=== PATIENT | female | born 1935 | race Caucasian/White ===

== ENCOUNTER → 2016-09-06 | Outpatient (CLI) | payer OTHER ==
[~2016-09-06] MED LIST: ASCO100061 PO; ASPI325T45 PO; CALC-5 PO; CHOL100027 PO; GLUC500C4 PO; GRAP100C PO; MAGN311C3 PO; MISCTAB26 PO; MULT-884 PO; NTRC PO; PHYT1CAP PO; VITA400C28 PO; [UNRECOGNIZED DRUG - OTHER] PO; [UNRECOGNIZED DRUG - OTHER] PO
[2016-09-06 11:25] LABS: URINE APPEARANCE CLOUDY (CLEAR); URINE BILIRUBIN NEG (NEG); URINE COLOR YELLOW; URINE EPITHELIAL CELL AUTO >30 /lpf (0-5); URINE NITRITE NEG (NEG); URINE SPECIFIC GRAVITY 1.013 (1.000-1.030); UROBILINOGEN NEG (NEG)
[2016-09-06 11:31] LABS: MANUAL MICROSCOPIC REQUIRED? NO; REVIEW REQ? YES
== END | disposition home or self-care (01) ==
LOC: C.LAB1850 10:30
PROVIDERS: ATTEND Obstetrics & Gynecology
DX: R39.9 Unspecified symptoms and signs involving the genitourinary system (principal)

== ENCOUNTER → 2016-10-28 | Outpatient (CLI) | payer OTHER | END | disposition home or self-care (01) | LOC: C.LABSPEC 10:14 | PROVIDERS: ATTEND Obstetrics & Gynecology | DX: N39.0 Urinary tract infection, site not specified (principal) ==

== ENCOUNTER → 2016-12-12 | Outpatient (CLI) | payer OTHER ==
--- NOTE | 2016-12-13 08:12 | DIAGNOSTIC IMAGING REPORT ---
MRI OF THE LUMBAR SPINE WITHOUT CONTRAST CLINICAL HISTORY: Low back pain with right lumbar radiculopathy. COMPARISON STUDY: CT of the abdomen and pelvis January 12, 2006. TECHNIQUE: Utilizing a 1.5 Laura magnet and dedicated coil, multiplanar, multiecho imaging of the lumbar spine was performed without IV contrast. FINDINGS: For purposes of numbering on this exam, the L5-S1 disc space is assigned to axial image 23 of 25. Alignment of the lumbar spine is anatomic. Vertebral body heights are maintained. Marrow signal heterogeneity is likely within normal limits. There is a Schmorl's node along the inferior endplate of L3. The conus terminates at the mid L1 level. There is no paravertebral abnormality. T2 hyperintense right hepatic lobe and renal lesions likely reflect cysts as these were present on exam of January 12, 2006. Note is made of an 8 mm cyst adjacent to the L4 and L5 spinous processes. L1-2: The central canal and neural foramen are patent L2-3: The central canal and neural foramen are patent. L3-4: There is disc bulge with ligamentous hypertrophy and facet arthrosis. There is mild narrowing of the central canal and lateral recesses. The neural foramen are patent. L4-5: There is minimal disc bulge. There is facet arthrosis with ligamentous hypertrophy. Minimal central canal and lateral recess narrowing is noted. There is a 6 mm T2 hyperintense right foraminal abnormality at this level shown on image 20 of 25. There is also a 6 mm T2 hyperintense abnormality within the right lateral aspect of the canal at the L5 level shown image 21. These could reflect a perineural or synovial cyst. L5-S1: There is disc bulge with a tiny central disc protrusion. There is facet arthrosis. Central canal is patent. There is mild narrowing of both neural foramen. IMPRESSION: 1. Mild multilevel degenerative disc disease and moderate multilevel facet arthrosis. Mild multilevel central canal stenosis. 2. Mild multilevel neural foraminal stenosis. 3. Two 6 mm T2 hyperintense abnormalities at the L4-L5 levels, as described above. These could reflect perineural or synovial cysts. Electronically signed by: Arturo Cai M.D. 12/13/2016 8:11 AM Dictated Date/Time: 12/12/2016 1:03 PM
== END | disposition home or self-care (01) ==
LOC: C.MRIBC 12:02
PROVIDERS: ATTEND Pain Medicine Interventional Pain Medicine
DX: M54.16 Radiculopathy, lumbar region (principal)

== ENCOUNTER → 2017-05-12 | Outpatient (CLI) | payer OTHER ==
[2017-05-12 12:17] LABS: URINE APPEARANCE CLEAR (CLEAR); URINE BILIRUBIN NEG (NEG); URINE COLOR YELLOW; URINE EPITHELIAL CELL AUTO >30 /lpf (0-5); URINE NITRITE NEG (NEG); URINE PH 5.5 (4.5-7.5); URINE SPECIFIC GRAVITY 1.017 (1.000-1.030); UROBILINOGEN NEG (NEG)
[2017-05-12 12:19] LABS: MANUAL MICROSCOPIC REQUIRED? NO; REVIEW REQ? NO
== END | disposition home or self-care (01) ==
LOC: C.LAB1850 10:31
PROVIDERS: ATTEND Obstetrics & Gynecology
DX: R39.9 Unspecified symptoms and signs involving the genitourinary system (principal)

== ENCOUNTER → 2017-07-22 | Outpatient (CLI) | payer OTHER | END | disposition home or self-care (01) | LOC: C.LABSPEC 17:38 | PROVIDERS: ATTEND Obstetrics & Gynecology | DX: R39.9 Unspecified symptoms and signs involving the genitourinary system (principal) ==

== ENCOUNTER 2017-10-16 23:28 | Emergency (ER) | payer OTHER ==
[~2017-10-16] VITALS: Ht 157.5 cm; Wt 64.6 kg
[~2017-10-16 23:28] MED LIST changes: +ASPECOTC PO; -ASPI325T45 PO
[2017-10-16 23:30] VITALS: BP 142/78; PULSE 80; TEMP 36.4; O2SAT 98; Ht 157.5 cm; Wt 64.6 kg
--- NOTE | 2017-10-16 23:53 | EMERGENCY ROOM VISIT NOTE ---
ED Visit Note First contact with patient: 23:35 I saw this patient in conjunction with Shana Brooks PA-C. I agree with her decision making and treatment plan. I examined the patient myself and use the otoscope to examine the right ear. There are no foreign bodies noted within the right ear. I did attempt to remove a small amount of dried wax from the superior aspect of the canal with the speculum. I was unsuccessful. However, this piece of wax is so tiny that I do not think it is affecting her in any way. She was encouraged to use peroxide if necessary to completely clean the ears.
--- NOTE | 2017-10-16 23:55 | EMERGENCY ROOM VISIT NOTE ---
ED Visit Note First contact with patient: 23:35 CHIEF COMPLAINT: Foreign body in the right ear canal HISTORY OF PRESENT ILLNESS: This 82-year-old femur patient presents to the emergency department, ambulatory, complaining of a lost cotton swab in the right ear canal. Just prior to arrival, the patient had gotten out of the shower, and was cleaning the water out of her ears. She states she was using a cotton swab to do this. She at one point pulled the cotton swab out of the right ear, noted the cotton was pulled off of the stick. She believes she is feeling the cotton within the right ear canal. The patient's states he did see the cotton in the ear canal, and was going to attempt to remove it with tweezers, however decided against this. The patient denies any hearing disturbances. She denies any significant pain. She denies any drainage. She is very concerned and anxious regarding the foreign body. She denies any previous history of similar incidents. REVIEW OF SYSTEMS: A 6 system review of systems was performed with positives and pertinent negatives listed in the history of present illness. All other systems were reviewed and are negative. ALLERGIES: Macrobid, penicillin, sulfa, quinolones, beta-lactam antibiotics MEDICATIONS: Aspirin, calcium, vitamin D, glucosamine, multivitamin PMH: "Dry mouth" SOCIAL HISTORY: The patient lives locally with family. She denies drug, alcohol , tobacco use. PHYSICAL EXAM: VITALS: Vitals are noted on the nurse's note and reviewed by myself. Vital signs stable. GENERAL: This is an 82-year-old white female, in no acute distress, nondiaphoretic, well-developed well-nourished. EAR: An otoscope was used to examine the right ear. The TM was not erythematous or bulging. There is no perforation. The ear canal is clear, with only a small amount of dried wax in the superior aspect of the canal. There are very few short cotton fibers attached to the wax, however no cotton swab within the canal. EMERGENCY DEPARTMENT COURSE: The patient was seen and evaluated as above. The patient's attempted to point out the cotton swab to me, and I advised him that this is earwax. He states "that is not earwax, it is the cotton swab" . The patient states "I do not ever have the earwax, as I have dry mouth, so I do not produce earwax". I had Dr. Abdalla evaluate the patient, and she was in agreement with my assessment. Please see her dictation regarding attempts to remove the earwax. The patient was encouraged to use peroxide or Debrox drops as needed for wax softening and removal. I did recommend avoidance of any object such as cotton swabs within the ear canal. Discharge instructions reviewed, the patient was discharged home in good condition. I attest that I have personally reviewed the patient's current medication list. Patient was found to have normal blood pressure on screening and does not require follow-up. Differential diagnosis includes foreign body of the ear canal, TM perforation, cerumen impaction, otitis media, otitis externa, malignancy, and others DIAGNOSIS: Concern for foreign body of the ear canal, no noted foreign body The chart was completed utilizing TDX Speech voice recognition software. Grammatical errors, random word insertions, pronoun errors, and incomplete sentences are an occasional consequence of this system due to software limitations, ambient noise, and hardware issues. Any formal questions or concerns about the content, text, or information contained within the body of this dictation should be directly addressed to the provider for clarification. Problem List Surgical Problems: (1) H/O mastectomy Status: Resolved (2) History of appendectomy Status: Resolved Current/Historical Medications Scheduled Ascorbic Acid (Ascorbic Acid), 1,000 MG PO illness Calcium-Magnesium W/ Vitamin D (Calcium 500), 500-750 MG PO DAILY Cholecalciferol (Vitamin D 1000 Unit), 1,000 INTER.UNIT PO DAILY Glucosamine Sulfate (Glucosamine), Unknown Dose PO DAILY Misc Natural Products (Ginkgo Biloba), 1 TAB PO DAILY Multiple Vitamin (Multi Vitamin Daily), 1 TAB PO DAILY Nutraceuticals (Nutraceuticals), 1 TBS PO DAILY Phytosterol Kfnyba-Xll-Bab (Vayarol), 1 PO DAILY Phytosterol Esters-Fish Oil-Ep (Cardiosterol), 1 CAP PO DAILY Vitamin E (Alph-E), Unknown Dose PO DAILY [estravol], 1-2 CAP PO DAILY Scheduled PRN Aspirin (Aspirin), 650 MG PO for illness Magnesium Hydroxide (Salmon Milk Of Magnesia), 4 TABS PO for illness Miscellaneous Medications Grape Seed (Grape Seed Extract), 1 CAP PO Allergies Coded Allergies: Quinolones (Verified Allergy, Severe, 10/16/17) Penicillins (Verified Allergy, Unknown, 10/16/17) Sulfa Drugs (Verified Allergy, Unknown, 08/11/09) Nitrofurantoin (Unverified Adverse Reaction, Mild, "TERRIBLE PAIN ABD", 06/23) Uncoded Allergies: BETALACTAMASEIN (Allergy, Unknown, LACTAM ANTIBIOTICS, 08/11/09) Vital Signs Date Time Temp Pulse Resp B/P (MAP) Pulse Ox O2 Delivery O2 Flow Rate FiO2 10/16/17 23:30 36.4 80 16 142/78 98 Room Air Departure Information Impression Primary Impression: Concern about ear disease without diagnosis Additional Impression: Cerumen debris on tympanic membrane of right ear Dispostion Home / Self-Care Condition GOOD Referrals No Doctor, Assigned (PCP) Patient Instructions ED Earwax Removal, [facility] Additional Instructions You were seen in the emergency department today for a possible foreign body of the ear canal. As discussed, there was no obvious foreign body noted. There was a few small pieces of cotton which had gotten stuck on some old, hard wax in the ear canal. You may use peroxide [id number] or Debrox drops to help soften the earwax and help with removal. As discussed, this wax does not need to be removed, as it will likely eventually fall out on its own. Follow-up with your PCP for further evaluation or concerns. Return to the emergency department for any worsening symptoms or concerns. Problem Qualifiers
== END 2017-10-16 23:56 | disposition home or self-care (01) ==
LOC: C.EDB 23:29 → C.EDC 23:56
DX: Z71.1 Person with feared health complaint in whom no diagnosis is made (principal); H61.21 Impacted cerumen, right ear; Z88.0 Allergy status to penicillin; Z88.2 Allergy status to sulfonamides; Z88.8 Allergy status to other drugs, medicaments and biological substances; Z79.82 Long term (current) use of aspirin

== ENCOUNTER 2023-07-21 22:31 | Observation (INO) ==
[2023-07-21 23:05] LABS: Basophils # (auto) 0.02 K/uL (0.00-0.20); Basophils % (auto) 0.3 %; Eosinophils # (auto) 0.08 K/uL (0.00-0.50); Eosinophils % (auto) 1.1 %; Hematocrit (blood only) 39.8 % (37.0-47.0); Hemoglobin 14.1 g/dl (12.0-16.0); Immature Granulocytes # (auto) 0.02 K/uL (0.01-0.20); Immature Granulocytes % (auto) 0.3 %; Lymphocytes # (auto) 1.36 K/uL (1.20-3.40); Lymphocytes % (auto) 19.1 %; Mean Corpuscular Hgb Conc 35.4 g/dL (32.0-36.0); Mean Corpuscular Volume 84.7 fL (80.0-100.0); Mean Platelet Volume 9.7 fL (9.4-12.4); Monocytes # (auto) 0.42 K/uL (0.11-0.59); Monocytes % (auto) 5.9 %; Neutrophils # (auto) 5.23 K/uL (1.40-6.50); Neutrophils % (auto) 73.3 %; Platelet Count 210 K/uL (130-400); RDW Coefficient of Variation 12.3 % (11.5-14.5); RDW Standard Deviation 37.9 fL (36.4-46.3); White Blood Count 7.13 K/ul (4.8-10.8)
[2023-07-21 23:16] LABS: Alanine Aminotransferase 15 U/L (7-52); Albumin Globulin Ratio 1.3 (0.9-2); Albumin Level 4.5 gm/dl (3.4-5.0); Alkaline Phosphatase 67 U/L (34-104); Anion Gap 9 (3-11); Aspartate Aminotransferase 22 U/L (13-39); Bilirubin,Total 0.4 mg/dl (0.2-1.0); Blood Urea Nitrogen 21 mg/dl (6-23); Calcium 9.7 mg/dl (8.6-10.3); Carbon Dioxide 22 mmol/L (21-32); Chloride 98 mmol/L (98-107); Est GFR (African American) 89.7 ml/min; Est GFR (Non-African American) 77.4 ml/min; Globulin 3.4 gm/dl (2.5-4.0); Glucose 128 mg/dl (70-99(Fasting)); Potassium 4.1 mmol/L (3.5-5.1); Sodium 129 mmol/L (136-145); Total Protein 7.9 gm/dl (6.0-8.3)
[2023-07-21 23:22] LABS: Troponin I High Sensitivity 10.3 pg/ml (0-14)
[2023-07-21 23:32] LABS: INR 0.9 (0.9-1.1); Partial Thromboplastin Ratio 0.9; Partial Thromboplastin Time 26 Seconds (21-31); Prothrombin Time 10.2 Seconds (9.0-12.0)
[2023-07-22] MEDS ORDERED: KETOROLAC 30 MG/ML VIAL IV ONE (00:24)
[2023-07-22] MEDS ORDERED: OPTIRAY 320 125ml IV ONE (00:57)
[2023-07-22 01:13] LABS: C Reactive Protein < 0.50 mg/dl (0-0.5)
[2023-07-22 01:20] LABS: Troponin I High Sensitivity 11.6 pg/ml (0-14)
[2023-07-22] MEDS ORDERED: SODIUM CHLORIDE 0.9% 1,000 ML IV ONE (01:23)
--- NOTE | 2023-07-22 01:48 | CT Scan Report ---
Exam(s): CTA CHEST IV Amt: 118 cc opti 320 EXAM: CT Angiography Chest With Intravenous Contrast CLINICAL HISTORY: Reason for exam: PE and right chest/ back pain. TECHNIQUE: Axial computed tomographic angiography images of the chest with intravenous contrast. CTDI is 15.95 mGy and DLP is 463.08 mGy-cm. Automated exposure control was utilized for the study. A dose lowering technique was utilized adhering to the principles of ALARA. MIP reconstructed images were created and reviewed. COMPARISON: 02/16/2020. FINDINGS: Pulmonary arteries: See below. Aorta: No acute findings. No thoracic aortic aneurysm. Lungs: Minimal bullous changes involving the right upper lung. Multilevel degenerative disease of the spine. Small partial filling defect within a mid proximal segmental branch of the right anterior middle lobe pulmonary artery consistent with partially occlusive thrombus seen on axial images 124 through 126, series 4. Small partially occlusive thrombus within the mid distal segmental branch of the right upper lobe pulmonary artery, axial image 145 and 146, series 4. Bilateral lower lobe atelectasis with lingular bulla measuring 2.5 cm. Remainder of the lung ramey otherwise clear. No mass. Pleural space: Unremarkable. No pleural effusion or pneumothorax. Heart: Borderline cardiomegaly. The RV/LV ratio is 0.9 with no evidence of right-sided cardiac strain. No significant pericardial effusion. Mediastinum: Mild hiatal hernia. Bones/joints: Diffuse osteopenia with multilevel degenerative disease of the spine. No acute fracture. No dislocation. Soft tissues: Unremarkable. Lymph nodes: Unremarkable. No enlarged lymph nodes. Liver: Multiple low-attenuation structures within the liver, largest seen in the right liver lobe measuring 1.7 x 1.2 cm most compatible with liver cysts. Remainder of the liver unremarkable. IMPRESSION: 1. Small segmental and subsegmental right upper lobe and right middle lobe pulmonary emboli with no evidence of right-sided cardiac strain. 2. Bilateral lower lobe atelectasis, otherwise no acute pulmonary disease. Communications: Call Doctor Other Electronically signed by: Diana Aviles MD 07/22/23 01:46 AM
[2023-07-22 02:41] LABS: Appearance Urine Clear (Clear); Bilirubin Urine Negative (Negative); Blood Urine Negative (Negative); Color Urine Yellow; Glucose Urine UA Negative (Negative); Ketones Urine Negative (Negative); Leukocyte Esterase Urine Negative (Negative); Nitrite Urine Negative (Negative); Protein Urine Negative (Negative); Specific Gravity Urine 1.013 (1.000-1.030); Urobilinogen Urine Negative (Negative); pH Urine 5.5 (4.5-7.5)
[2023-07-22] MEDS ORDERED: Heparin IV Adult Wt-Based Standard *NO* INITIAL Bolus Protocol IV STA (03:50)
[2023-07-22] MEDS ORDERED: HEPARIN SODIUM/DEXTROSE 25,000 UNITS/500 ML BAG IV SCH (04:15)
[2023-07-22] MEDS ORDERED: LIDOCAINE 5% 1 PATCH TD STA (04:44)
[2023-07-22] MEDS ORDERED: LIDOCAINE 5% 1 PATCH TD ONE (04:47)
--- NOTE | 2023-07-22 05:02 | History & Physical Report ---
Date of Service July 22, 2023 Assessment & Plan (1) Pulmonary emboli: Plan: 88yo female presenting with ongoing right shoulder pain. Patient is quite uncomfortable, pain stabbing 10/10 in severity. Found to have small segmental and subsegmental RUL and RML pulmonary emboli as well as bilateral lower lobe atelectasis. Remainder of CT image largely unremarkable. Patient is hemodynamically stable, adequate oxygenation on room air. Patient does have a high risk PESI score (118 points) due to age and history of cancer. Normal shock index. PE most likely provoked in the setting of recent Covid-19 infection. Patient also endorses some decreased mobility lately due to orthopedic discomfort. Of note, patient prefers to take a more holistic and spiritual approach to her health care. She does not take a lot of prescribed or over the counter medications but rather opts for supplements and herbal remedies. She does not spend a lot of time in the healthcare setting and is understandably anxious given her current situation. -Heparin gtt ordered, likely transition to Eliquis later today. Will need to confirm that she is not taking Jennings Wort as this is contraindicated with Eliquis -In accordance with patient's wishes would ideally opt for shortest treatment duration (3 months of anticoagulation for provoked VTE) if possible (2) Right shoulder pain: Plan: Etiology unclear. Patient did have similar presentation of right shoulder pain in 2019 when she was acutely ill with Covid-19. Suspect that her pain is largely due to her recent Covid-19 infection. Pulmonary emboli likely contributing in part as well. As above, patient does not prefer to take pain medications. Her 's daughter reportedly from taking Tylenol so she does not want to take Acetaminophen containing products. She has been using Camphor/Menthol rub at home with minimal relief. -Will trial Lidoderm patches - ordered to be placed in the ER -Could consider Voltaren gel as well -Heat to right shoulder and neck as needed for relief (3) Constipation: Plan: Patient reports ongoing constipation. She takes a stool softener at home -Milk of magnesium as needed Patient's daughter, Alla, updated . Please update her regularly as patient's hospital stay unfolds. History of Present Illness Chief Complaint: right shoulder pain Primary Care Provider: DO Aurora Lopez Fe is an 88yo female with remote history of breast cancer (1990) presenting with right shoulder pain. Patient reports having Covid-19 infection July 07. This is her 4th time with Covid and she frequent has associated pain and weakness. She developed mouth ulcers and pain in her right back and scapula. Her mouth ulcers resolved but the pain in her right shoulder persisted and has been worsening over the last several days. Patient is very uncomfortable. Reports the pain is stabbing in nature and severe. Does not seem to be pleuritic or positional in nature. No chest pain, shortness of breath, nausea, vomiting or diarrhea. She does report poor appetite of late as well as some chronic constipation. No trauma or straining of the right shoulder area. No rash. No pain or swelling of legs No additional complaints at this time. In the ER she is afebrile, hypertensive at 183/113 otherwise HD stable. No respiratory distress. Adequate oxygenation on room air. ER Course: Toradol NSS Heparin gtt - ordered, not yet initiated Allergies Allergy/AdvReac Type Severity Reaction Status Date / Time Quinolones Allergy Severe Unknown Verified 04/09/23 13:48 ciprofloxacin [From Cipro] Allergy Unknown Verified 04/09/23 13:48 clavulanic acid Allergy Unknown Verified 04/09/23 13:48 [From Augmentin] fluconazole [From Diflucan] Allergy Unknown Verified 04/09/23 13:48 Sulfa (Sulfonamide Allergy Unknown Unknown Verified 04/09/23 13:48 Antibiotics) miconazole [From Monistat 7] AdvReac Severe Verified 04/09/23 13:48 nitrofurantoin AdvReac Mild "TERRIBLE Verified 04/09/23 13:48 PAIN ABD" BETALACTAMASEIN Allergy Unknown LACTAM Uncoded 04/09/23 13:48 ANTIBIOTICS Home Medications Medication Instructions Recorded Confirmed Type Left Breast Prosthesis #1 ea 08/22/22 07/22/23 Rx Mastectomy Bra #4 ea 08/22/22 07/22/23 Rx triamcinolone acetonide 0.1 % 1 applic topical TID PRN external 02/03/23 07/22/23 Rx topical ointment irritation #30 grams estradiol 0.01% (0.1 mg/gram) 1 g vaginal .COMPLEX #42.5 grams 03/05/23 07/22/23 Rx vaginal cream nystatin 100,000 unit/gram topical 1 applic topical TID PRN Yeast #30 06/16/23 07/22/23 Rx ointment grams Past Med/Surg History Medical History Breast cancer Encounter for well woman exam with routine gynecological exam Vulvar atrophy Urinary tract infection Urinary symptom or sign Postmenopausal atrophic vaginitis Menopause Breast cancer diagnosed 1990- left mastectomy Surgical History H/O dilation and curettage H/O mastectomy History of appendectomy Family History Father Lung disease Mother Diabetes Denies family history of Ovarian cancer Prostate cancer Myocardial infarction Breast cancer Lung cancer Colorectal cancer Stroke Social History Smoking Status: Never smoker Second Hand Exposure: Yes; Do You Dip or Chew Tobacco: No; Hx Alcohol Use: No Hx Substance Use: No Preferred Language: Lithuanian Communication Ability: Effective Visual Impairment: Partially Limited Hearing Ability: Normal [employer] Area Supervisor Required: No marital status: Current Living Situation: Spouse current occupational status: retired How many Children do You have: 4 Feels Safe at Home: Yes Childhood Exposure to Second-Hand Smoke: No Diet: regular caffeine: No during the past year weight has: remained stable Dental Care, Regularly: Yes Physical Activity Frequency: Does not Exercise Seatbelt Use: always Sunscreen Use: No Assistive Devices: Glasses and Wheelchair Review of Systems Review of Systems: All systems reviewed & are unremarkable except as noted in HPI & below Physical Exam Physical Exam: General: patient uncomfortable in bed, NAD, appears anxious and somewhat frustrated, AA&O x 4 Skin: warm, dry, intact, no rashes or lesions HEENT: NC/AT, PERRL, EOMI, anicteric sclera, conjunctiva without injection, external ear normal to inspection and nontender, nares patent, dry mucus membranes, dentition intact, no oropharyngeal lesions, neck supple, trachea midline, no LAD, no thyromegaly, no JVD Heart: +S1/S2, regular, no m/r/g Lungs: equal air entry bilaterally, no rales/rhonchi/wheezes Abd: +BS, soft, NT/ND, no masses/organomegaly/ascites Ext: warm, 2+ pulses in UE/LE bilaterally, no clubbing/cyanosis or edema Neuro: nonfocal Right shoulder and ribs with no obvious deformity. Diffuse tenderness with palpation of shoulder, ribs, paraspinal musculature. No warmth or tension of musculature appreciated. No rash. No crepitus. Results & Data Results & Data Vital Signs (Past 12 Hours) Vital Signs Temp Pulse Pulse Resp BP BP Pulse Ox 07/22/23 02:56 86 07/22/23 02:03 85 24 183/113 H 97 07/22/23 01:53 79 20 95 07/21/23 23:40 186/99 H 07/21/23 23:01 86 07/21/23 23:00 84 23 94 07/21/23 23:00 163/94 H 07/21/23 22:34 36.8 C 90 18 189/118 H 97 O2 Del Method 07/22/23 02:56 07/22/23 02:03 07/22/23 01:53 Room Air 07/21/23 23:40 07/21/23 23:01 07/21/23 23:00 07/21/23 23:00 07/21/23 22:34 Room Air Laboratory Results Laboratory Results WBC 7.13 K/ul (4.8-10.8) 07/21/23 22:45 RBC 4.70 M/uL (4.20-5.40) 07/21/23 22:45 Hgb 14.1 g/dl (12.0-16.0) 07/21/23 22:45 Hct 39.8 % (37.0-47.0) 07/21/23 22:45 MCV 84.7 fL (80.0-100.0) 07/21/23 22:45 MCH 30.0 pg (25.0-34.0) 07/21/23 22:45 MCHC 35.4 g/dL (32.0-36.0) 07/21/23 22:45 RDW Std Deviation 37.9 fL (36.4-46.3) 07/21/23 22:45 RDW Coeff of Serene 12.3 % (11.5-14.5) 07/21/23 22:45 Plt Count 210 K/uL (130-400) 07/21/23 22:45 MPV 9.7 fL (9.4-12.4) 07/21/23 22:45 Immature Gran % (Auto) 0.3 % 07/21/23 22:45 Neut % (Auto) 73.3 % 07/21/23 22:45 Lymph % (Auto) 19.1 % 07/21/23 22:45 [place] % (Auto) 5.9 % 07/21/23 22:45 Eos % (Auto) 1.1 % 07/21/23 22:45 Baso % (Auto) 0.3 % 07/21/23 22:45 Neut # (Auto) 5.23 K/uL (1.40-6.50) 07/21/23 22:45 Lymph # (Auto) 1.36 K/uL (1.20-3.40) 07/21/23 22:45 [place] # (Auto) 0.42 K/uL (0.11-0.59) 07/21/23 22:45 Eos # (Auto) 0.08 K/uL (0.00-0.50) 07/21/23 22:45 Baso # (Auto) 0.02 K/uL (0.00-0.20) 07/21/23 22:45 Immature Gran # (Auto) 0.02 K/uL (0.01-0.20) 07/21/23 22:45 ESR 28 mm/hr (0-30) 07/22/23 00:46 PT 10.2 Seconds (9.0-12.0) 07/21/23 22:45 INR 0.9 (0.9-1.1) 07/21/23 22:45 APTT 26 Seconds (21-31) 07/21/23 22:45 PTT Ratio 0.9 07/21/23 22:45 Sodium 129 mmol/L (136-145) L 07/21/23 22:45 Potassium 4.1 mmol/L (3.5-5.1) 07/21/23 22:45 Chloride 98 mmol/L (98-107) 07/21/23 22:45 Carbon Dioxide 22 mmol/L (21-32) 07/21/23 22:45 Anion Gap 9 (3-11) 07/21/23 22:45 BUN 21 mg/dl (6-23) 07/21/23 22:45 Creatinine 0.70 mg/dl (0.6-1.2) 07/21/23 22:45 Est Cr Clr Drug Dosing Not Reportable 07/21/23 22:45 Est GFR ( Amer) 89.7 ml/min 07/21/23 22:45 Est GFR (Non-Af Amer) 77.4 ml/min 07/21/23 22:45 BUN/Creatinine Ratio 30.0 (10-20) H 07/21/23 22:45 Glucose 128 mg/dl (70-99(Fasting)) H 07/21/23 22:45 Calcium 9.7 mg/dl (8.6-10.3) 07/21/23 22:45 Total Bilirubin 0.4 mg/dl (0.2-1.0) 07/21/23 22:45 AST 22 U/L (13-39) 07/21/23 22:45 ALT 15 U/L (7-52) 07/21/23 22:45 Alkaline Phosphatase 67 U/L (34-104) 07/21/23 22:45 Troponin I High Sens 11.6 pg/ml (0-14) 07/22/23 00:46 C-Reactive Protein < 0.50 mg/dl (0-0.5) 07/22/23 00:46 Total Protein 7.9 gm/dl (6.0-8.3) 07/21/23 22:45 Albumin 4.5 gm/dl (3.4-5.0) 07/21/23 22:45 Globulin 3.4 gm/dl (2.5-4.0) 07/21/23 22:45 Albumin/Globulin Ratio 1.3 (0.9-2) 07/21/23 22:45 Urine Color Yellow 07/22/23 02:00 Urine Appearance Clear (Clear) 07/22/23 02:00 Urine pH 5.5 (4.5-7.5) 07/22/23 02:00 Ur Specific [place] 1.013 (1.000-1.030) 07/22/23 02:00 Urine Protein Negative (Negative) 07/22/23 02:00 Urine Glucose (UA) Negative (Negative) 07/22/23 02:00 Urine Ketones Negative (Negative) 07/22/23 02:00 Urine Blood Negative (Negative) 07/22/23 02:00 Urine Nitrite Negative (Negative) 07/22/23 02:00 Urine Bilirubin Negative (Negative) 07/22/23 02:00 Urine Urobilinogen Negative (Negative) 07/22/23 02:00 Ur Leukocyte Esterase Negative (Negative) 07/22/23 02:00 Impressions Chest CTA 07/22/23 00:24 CR Exam(s): CTA CHEST IV Amt: 118 cc opti 320 EXAM: CT Angiography Chest With Intravenous Contrast CLINICAL HISTORY: Reason for exam: PE and right chest/ back pain. TECHNIQUE: Axial computed tomographic angiography images of the chest with intravenous contrast. CTDI is 15.95 mGy and DLP is 463.08 mGy-cm. Automated exposure control was utilized for the study. A dose lowering technique was utilized adhering to the principles of ALARA. MIP reconstructed images were created and reviewed. COMPARISON: 02/16/2020. FINDINGS: Pulmonary arteries: See below. Aorta: No acute findings. No thoracic aortic aneurysm. Lungs: Minimal bullous changes involving the right upper lung. Multilevel degenerative disease of the spine. Small partial filling defect within a mid proximal segmental branch of the right anterior middle lobe pulmonary artery consistent with partially occlusive thrombus seen on axial images 124 through 126, series 4. Small partially occlusive thrombus within the mid distal segmental branch of the right upper lobe pulmonary artery, axial image 145 and 146, series 4. Bilateral lower lobe atelectasis with lingular bulla measuring 2.5 cm. Remainder of the lung ramey otherwise clear. No mass. Pleural space: Unremarkable. No pleural effusion or pneumothorax. Heart: Borderline cardiomegaly. The RV/LV ratio is 0.9 with no evidence of right-sided cardiac strain. No significant pericardial effusion. Mediastinum: Mild hiatal hernia. Bones/joints: Diffuse osteopenia with multilevel degenerative disease of the spine. No acute fracture. No dislocation. Soft tissues: Unremarkable. Lymph nodes: Unremarkable. No enlarged lymph nodes. Liver: Multiple low-attenuation structures within the liver, largest seen in the right liver lobe measuring 1.7 x 1.2 cm most compatible with liver cysts. Remainder of the liver unremarkable. IMPRESSION: 1. Small segmental and subsegmental right upper lobe and right middle lobe pulmonary emboli with no evidence of right-sided cardiac strain. 2. Bilateral lower lobe atelectasis, otherwise no acute pulmonary disease. Communications: Call Doctor Other Electronically signed by: Diana Aviles MD 07/22/23 01:46 AM ECG Additional Comments: EKG with SR at 90bpm, 1st degree AV block with WF=084, QRS=82, ZIe=448, no acute ischemic changes PG Care Time/CCT Total # of Minutes Spent Total Time Spent with Patient: Total time spent is greater than 50% in coordination of care (as documented) at patient's floor/unit and/or counseling patient: Coding Level of Care Code 22272 INT INP/OBS CARE 2/55MIN Diagnoses Pulmonary emboli I26.99 Right shoulder pain M25.511 Constipation K59.00
--- NOTE | 2023-07-22 06:57 | XRay Report ---
XR chest 1V portable CLINICAL HISTORY: Chest pain, nonspecific TECHNIQUE: Single frontal radiograph of the chest was obtained. Comparison: Comparison is made to chest radiograph 02/08/2020 FINDINGS: No lines and tubes are seen. The cardiomediastinal silhouette is normal. Faint airspace opacity in th e right lower lung. No evidence of pleural effusion or pneumothorax. IMPRESSION: Faint airspace opacity in the right lower lung likely represent atelectasis with or without superimpo sed aspiration/pneumonia. ACT 112: Negative or not required by law. Electronically signed by: Tomy Savage M.D. 07/22/2023 6:55 AM
--- NOTE | 2023-07-22 06:58 | Emergency Department Note ---
Impression & Plan Pulmonary emboli, Acute right-sided back pain Admit to the [facility] ED Provider Note NAME: JEFF CRONIN AGE: 88 SEX: Female INFORMANT: Patient ED PROVIDER(S): Natasha Abdalla DO CHIEF COMPLAINT: Right shoulder pain, chest pain, back pain PLAN: Disposition: Admit to the [facility] MEDICAL DECISION MAKING: This is an 88-year-old female patient who presents to the emergency department with excruciating right mid back pain, right arm pain and right-sided chest pain that has worsened over the past 3 weeks. The patient describes having COVID around 07 July which seems to have started to exacerbate her symptoms. Laboratory studies revealed no leukocytosis or anemia. She had normal coagulation studies. Patient did have moderate hyponatremia with a sodium of 129 and normal renal function. She was bolused with IV normal saline solution she had a normal glucose. Patient did have an opacity in the right lower lung on chest x-ray. She had normal-appearing shoulder on x-ray. She went for CTA of the chest to rule out PE. This did show multiple emboli in the right lung. Patient was hemodynamically stable with normal blood pressure and no evidence of hypoxia. Patient was offered multiple different additional IV analgesia but refused out of fear of side effects from the medications. However given the patient's age, need for additional work up and she was having such significant discomfort in her right shoulder, right back and right breast, I felt the patient should be admitted for IV anticoagulation and transition to oral anticoagulation. She was started on IV heparin drip after a lengthy discussion with the patient, the patient's and the patient's daughter. I discussed the case with the [facility] and they will evaluate the patient for further inpatient care. Care/management discussed with: The patient's daughter, patient's , the client account manager, the radiologist, and the [facility] Triage Nursing notes: Reviewed and agree with them. 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 There is no ST segment elevation or signs of ischemia Cardiac Monitoring: Normal sinus rhythm at 84 Imaging studies: Portable chest x-ray: Opacity at the right lung base as per my independent interpretation Right shoulder x-ray: No obvious abnormality as per my independent interpretation CT scan of the chest: As per stat rad HPI: 88 year old Female arrives for evaluation of right-sided back pain, right arm pain and right-sided chest pain/breast pain. According to the patient and her , she has been having right-sided chest pain for the past 3 to 4 weeks and then developed COVID. Since that time she has had increasing right shoulder pain, right arm pain and right-sided back pain. She also noticed some ulcerations in her mouth. PAST MEDICAL HISTORY: See Below, PAST SURGICAL HISTORY: See Below, SOCIAL HISTORY: Patient lives with her , she does not smoke HOME MEDICATIONS: None ALLERGIES: Please see long list VITALS: See Below PHYSICAL EXAMINATION: HEENT: Head - normocephalic and atraumatic. Pupils are equal, round, and reactive to light. Extraocular eye muscles are intact, and sclera are anicteric. Nose - moist nasal mucosa without discharge. Mouth - moist buccal mucosa. Oropharynx is nonerythematous and there is no tonsillar exudate or edema noted. Neck: Supple; no JVD or cervical lymphadenopathy Chest: Patient had pain to palpation to the right breast tissue and right chest wall Heart: Regular rate and rhythm. There is a normal S1 and S2 with no murmurs, clicks, or gallops appreciated. Lungs: Clear to auscultation bilaterally with no wheezes, rales, or rhonchi. Abdomen: Soft, completely nontender, nondistended, with good bowel sounds. There are no palpable pulsatile masses or hepatosplenomegaly. There is no guarding, rigidity, or rebound noted. Extremities: No evidence of cyanosis, clubbing, or edema. There are easily palpable peripheral pulses. There are no skin lesions noted to the right arm but the patient did have significant pain to palpation even to light touch to the right upper arm Skin: warm and dry with good turgor and no rashes. Back: There were no skin lesions noted to the right side of her upper back. However, she had exquisite tenderness with even light palpation in that area. Emergency department treatment: traffic monitor specialist, IV Toradol, IV heparin Emergency department course: The patient was evaluated in room A-4. A complete history and physical was performed. An order was placed for continuous cardiac monitoring. The patient was in a normal sinus rhythm at a rate of 84 patient was given a dose of IV Toradol. Patient was bolused with IV normal saline solution. Patient had a chest x-ray of the chest and right shoulder. She went for CTA of the chest to rule out PE as well as other pathology. Reviewed the results of the laboratory says as well as a CT scan. I was asked by the patient to discuss the case with her daughter. Patient will be started on an IV heparin drip. Discussed the case with the [facility] Hospitalist and she will be evaluated for further inpatient care. Past Med/Surg History Medical History Breast cancer Encounter for well woman exam with routine gynecological exam Vulvar atrophy Urinary tract infection Urinary symptom or sign Postmenopausal atrophic vaginitis Menopause Breast cancer diagnosed 1990- left mastectomy Surgical History H/O dilation and curettage H/O mastectomy History of appendectomy Family History Father Lung disease Mother Diabetes Denies family history of Ovarian cancer Prostate cancer Myocardial infarction Breast cancer Lung cancer Colorectal cancer Stroke Social History Smoking Status: Never smoker Second Hand Exposure: Yes; Do You Dip or Chew Tobacco: No; Hx Alcohol Use: No Hx Substance Use: No Preferred Language: Belgian Communication Ability: Effective Visual Impairment: Partially Limited Hearing Ability: Normal Bus Analyst Required: No Beliefs That Will Affect Care: None marital status: Current Living Situation: Spouse current occupational status: retired How many Children do You have: 4 Feels Safe at Home: Yes Childhood Exposure to Second-Hand Smoke: No Diet: regular caffeine: No during the past year weight has: remained stable Dental Care, Regularly: Yes Physical Activity Frequency: Does not Exercise Seatbelt Use: always Sunscreen Use: No Assistive Devices: Wheelchair Allergies Allergies Allergy/AdvReac Type Severity Reaction Status Date / Time Quinolones Allergy Severe Unknown Verified 04/09/23 13:48 ciprofloxacin [From Cipro] Allergy Unknown Verified 04/09/23 13:48 clavulanic acid Allergy Unknown Verified 04/09/23 13:48 [From Augmentin] fluconazole [From Diflucan] Allergy Unknown Verified 04/09/23 13:48 Sulfa (Sulfonamide Allergy Unknown Unknown Verified 04/09/23 13:48 Antibiotics) miconazole [From Monistat 7] AdvReac Severe Verified 04/09/23 13:48 nitrofurantoin AdvReac Mild "TERRIBLE Verified 04/09/23 13:48 PAIN ABD" BETALACTAMASEIN Allergy Unknown LACTAM Uncoded 04/09/23 13:48 ANTIBIOTICS Home Meds Previous Rx's Medication Instructions Recorded Left Breast Prosthesis #1 ea 08/22/22 Mastectomy Bra #4 ea 08/22/22 triamcinolone acetonide 0.1 % 1 applic topical TID PRN external 02/03/23 topical ointment irritation #30 grams estradiol 0.01% (0.1 mg/gram) 1 g vaginal .COMPLEX #42.5 grams 03/05/23 vaginal cream nystatin 100,000 unit/gram topical 1 applic topical TID PRN Yeast #30 06/16/23 ointment grams apixaban 5 mg tablet (Eliquis) 10 mg (2 x 5 mg) PO BID #74 tabs 07/22/23 ibuprofen 200 mg tablet 600 mg (3 x 200 mg) PO Q6H PRN 07/22/23 pain #20 tabs Results & Data (ED) Vital Signs Vital Signs - 24 hr 07/21/23 22:34 07/21/23 23:00 07/21/23 23:00 Temperature 36.8 C Temperature Source Temporal Artery Scan Pulse Rate 90 84 Pulse Rate [Apical] Pulse Rate from SpO2 Sensor 84 Pulse Rhythm Regular Pulse Rhythm [Apical] Pulse Strength Normal Pulse Strength [Apical] Respiratory Rate 18 23 Respiratory Effort / Characteristics Non-Labored Spontaneous Respiratory Depth Normal Respiratory Pattern Regular Blood Pressure 189/118 H 163/94 H Blood Pressure [Left Arm] Blood Pressure Mean 141 127 Blood Pressure Mean [Left Arm] Blood Pressure Position Sitting Blood Pressure Position [Left Arm] Pulse Oximetry 97 94 Oxygen Delivery Method Room Air Sepsis Recent Fever Within 48 Hours No Sepsis New/Unexplained Change in Mental Status N/A Sepsis Action Taken by Nursing No Action Required 07/21/23 23:01 07/21/23 23:40 07/22/23 01:53 Temperature Temperature Source Pulse Rate 86 Pulse Rate [Apical] 79 Pulse Rate from SpO2 Sensor Pulse Rhythm Pulse Rhythm [Apical] Regular Pulse Strength Pulse Strength [Apical] Normal Respiratory Rate 20 Respiratory Effort / Characteristics Non-Labored Respiratory Depth Normal Respiratory Pattern Regular Blood Pressure Blood Pressure [Left Arm] 186/99 H Blood Pressure Mean Blood Pressure Mean [Left Arm] 128 Blood Pressure Position Blood Pressure Position [Left Arm] Sitting Pulse Oximetry 95 Oxygen Delivery Method Room Air Sepsis Recent Fever Within 48 Hours Sepsis New/Unexplained Change in Mental Status Sepsis Action Taken by Nursing 07/22/23 02:03 07/22/23 02:05 07/22/23 02:05 Temperature Temperature Source Pulse Rate 85 86 Pulse Rate [Apical] Pulse Rate from SpO2 Sensor Pulse Rhythm Pulse Rhythm [Apical] Pulse Strength Pulse Strength [Apical] Respiratory Rate 24 20 Respiratory Effort / Characteristics Respiratory Depth Respiratory Pattern Blood Pressure 183/113 H 183/113 H Blood Pressure [Left Arm] Blood Pressure Mean 136 150 Blood Pressure Mean [Left Arm] Blood Pressure Position Blood Pressure Position [Left Arm] Pulse Oximetry 97 Oxygen Delivery Method Sepsis Recent Fever Within 48 Hours Sepsis New/Unexplained Change in Mental Status Sepsis Action Taken by Nursing 07/22/23 02:56 07/22/23 03:00 07/22/23 03:00 Temperature Temperature Source Pulse Rate 86 89 Pulse Rate [Apical] Pulse Rate from SpO2 Sensor 90 Pulse Rhythm Pulse Rhythm [Apical] Pulse Strength Pulse Strength [Apical] Respiratory Rate 23 Respiratory Effort / Characteristics Respiratory Depth Respiratory Pattern Blood Pressure 205/108 H Blood Pressure [Left Arm] Blood Pressure Mean 156 Blood Pressure Mean [Left Arm] Blood Pressure Position Blood Pressure Position [Left Arm] Pulse Oximetry 94 Oxygen Delivery Method Sepsis Recent Fever Within 48 Hours Sepsis New/Unexplained Change in Mental Status Sepsis Action Taken by Nursing 07/22/23 03:49 07/22/23 03:49 07/22/23 04:00 Temperature Temperature Source Pulse Rate 84 84 Pulse Rate [Apical] Pulse Rate from SpO2 Sensor 87 Pulse Rhythm Pulse Rhythm [Apical] Pulse Strength Pulse Strength [Apical] Respiratory Rate 22 18 Respiratory Effort / Characteristics Respiratory Depth Respiratory Pattern Blood Pressure 211/110 H Blood Pressure [Left Arm] Blood Pressure Mean 122 Blood Pressure Mean [Left Arm] Blood Pressure Position Blood Pressure Position [Left Arm] Pulse Oximetry 94 Oxygen Delivery Method Sepsis Recent Fever Within 48 Hours Sepsis New/Unexplained Change in Mental Status Sepsis Action Taken by Nursing 07/22/23 04:00 Temperature Temperature Source Pulse Rate Pulse Rate [Apical] Pulse Rate from SpO2 Sensor Pulse Rhythm Pulse Rhythm [Apical] Pulse Strength Pulse Strength [Apical] Respiratory Rate Respiratory Effort / Characteristics Respiratory Depth Respiratory Pattern Blood Pressure 168/120 H Blood Pressure [Left Arm] Blood Pressure Mean 135 Blood Pressure Mean [Left Arm] Blood Pressure Position Blood Pressure Position [Left Arm] Pulse Oximetry Oxygen Delivery Method Sepsis Recent Fever Within 48 Hours Sepsis New/Unexplained Change in Mental Status Sepsis Action Taken by Nursing Laboratory Data 07/21/23 22:45 07/21/23 22:45 Lab Results 07/21/23 07/22/23 07/22/23 Range/Units 22:45 00:46 02:00 WBC 7.13 (4.8-10.8) K/ul RBC 4.70 (4.20-5.40) M/uL Hgb 14.1 (12.0-16.0) g/dl Hct 39.8 (37.0-47.0) % MCV 84.7 (80.0-100.0) fL MCH 30.0 (25.0-34.0) pg MCHC 35.4 (32.0-36.0) g/dL RDW Std Deviation 37.9 (36.4-46.3) fL RDW Coeff of [place] 12.3 (11.5-14.5) % Plt Count 210 (130-400) K/uL MPV 9.7 (9.4-12.4) fL Immature Gran % (Auto) 0.3 % Neut % (Auto) 73.3 % Lymph % (Auto) 19.1 % Sunflower % (Auto) 5.9 % Eos % (Auto) 1.1 % Baso % (Auto) 0.3 % Neut # (Auto) 5.23 (1.40-6.50) K/uL Lymph # (Auto) 1.36 (1.20-3.40) K/uL Sunflower # (Auto) 0.42 (0.11-0.59) K/uL Eos # (Auto) 0.08 (0.00-0.50) K/uL Baso # (Auto) 0.02 (0.00-0.20) K/uL Immature Gran # (Auto) 0.02 (0.01-0.20) K/uL ESR 28 (0-30) mm/hr PT 10.2 (9.0-12.0) Seconds INR 0.9 (0.9-1.1) APTT 26 (21-31) Seconds PTT Ratio 0.9 Sodium 129 L (136-145) mmol/L Potassium 4.1 (3.5-5.1) mmol/L Chloride 98 (98-107) mmol/L Carbon Dioxide 22 (21-32) mmol/L Anion Gap 9 (3-11) BUN 21 (6-23) mg/dl Creatinine 0.70 (0.6-1.2) mg/dl Est Cr Clr Drug Dosing Not Reportable Est GFR ( Amer) 89.7 ml/min Est GFR (Non-Af Amer) 77.4 ml/min BUN/Creatinine Ratio 30.0 H (10-20) Glucose 128 H (70-99(Fasting)) mg/dl Calcium 9.7 (8.6-10.3) mg/dl Total Bilirubin 0.4 (0.2-1.0) mg/dl AST 22 (13-39) U/L ALT 15 (7-52) U/L Alkaline Phosphatase 67 (34-104) U/L Troponin I High Sens 10.3 11.6 (0-14) pg/ml C-Reactive Protein < 0.50 (0-0.5) mg/dl Total Protein 7.9 (6.0-8.3) gm/dl Albumin 4.5 (3.4-5.0) gm/dl Globulin 3.4 (2.5-4.0) gm/dl Albumin/Globulin Ratio 1.3 (0.9-2) Urine Color Yellow Urine Appearance Clear (Clear) Urine pH 5.5 (4.5-7.5) Ur Specific [place] 1.013 (1.000-1.030) Urine Protein Negative (Negative) Urine Glucose (UA) Negative (Negative) Urine Ketones Negative (Negative) Urine Blood Negative (Negative) Urine Nitrite Negative (Negative) Urine Bilirubin Negative (Negative) Urine Urobilinogen Negative (Negative) Ur Leukocyte Esterase Negative (Negative) Administered Medications Discontinued Medications Apixaban (Apixaban 5 Mg Tablet) 10 mg PO BID JACY Stop: 07/29/23 09:01 Last Admin: 07/22/23 16:59 Dose: 10 mg Documented By: VERA Heparin Sodium/Dextrose (Heparin Iv Adult Wt-Based Standard *No* Initial Bolus Protocol) 1 each IV ONE STA; Protocol Stop: 07/22/23 03:51 Last Admin: 07/22/23 05:26 Dose: Not Given Documented By: SAUL Sodium Chloride (Nss) 1,000 mls @ 999 mls/hr IV .Q1H1M ONE Stop: 07/22/23 02:23 Last Infusion: 07/22/23 02:38 Dose: Infused Documented By: Admin: 07/22/23 01:34 Dose: 999 mls/hr Documented By: SAUL Heparin Sodium/Dextrose (Heparin Sodium/Dextrose) 25,000 units in 500 mls @ 20 mls/hr IV .Q24H JACY; Protocol Stop: 07/22/23 17:00 Last Titration: 07/22/23 17:00 Dose: Infused Documented By: VERA Co-signed By: KENNY Titration: 07/22/23 14:00 Dose: 1,000 units/hr, 20 mls/hr Documented By: VERA Co-signed By: YAMILKA Titration: 07/22/23 12:55 Dose: 0 units/hr, 0 mls/hr Documented By: VERA Co-signed By: LAMINE Titration: 07/22/23 10:42 Dose: 1,100 units/hr, 22 mls/hr Documented By: VERA Co-signed By: LAMINE Admin: 07/22/23 05:25 Dose: 1,100 units/hr, 22 mls/hr Documented By: SAUL Co-signed By: DOROTHY Ioversol (Optiray 320 125ml) 118 ml IV ONCE ONE Stop: 07/22/23 00:58 Last Admin: 07/22/23 00:58 Dose: 118 ml Documented By: CAREN Ketorolac Tromethamine (Ketorolac 30 Mg/Ml Vial) 30 mg IV NOW ONE Stop: 07/22/23 00:25 Last Admin: 07/22/23 00:47 Dose: 30 mg Documented By: GABINO Ketorolac Tromethamine (Ketorolac Tromethamine 15 Mg/Ml Vial) 15 mg IV Q6H PRN PRN Reason: Pain Last Admin: 07/22/23 17:05 Dose: 15 mg Documented By: Admin: 07/22/23 09:51 Dose: 15 mg Documented By: BRENNAN Lidocaine (Lidocaine 5% 1 Patch) 1 patch TD NOW STA Stop: 07/22/23 04:45 Last Admin: 07/22/23 05:25 Dose: 1 patch Documented By: SAUL Lidocaine (Lidocaine 5% 1 Patch) Confirm Administered Dose 1 patch TD .STK-MED ONE Stop: 07/22/23 04:48 Last Admin: 07/22/23 05:24 Dose: Not Given Documented By: SAUL Lidocaine (Lidocaine 5% 1 Patch) 1 patch TD QAM [facility] Stop: 08/21/23 08:59 Last Admin: 07/22/23 10:05 Dose: Not Given Documented By: BRENNAN Miscellaneous (Remove Lidoderm Patch) 1 each N/A TODAY@1700 ONE Stop: 07/22/23 17:01 Last Admin: 07/22/23 17:01 Dose: 1 each Documented By: [facility] Imaging Data Radiologist's Impression: Chest CTA 07/22/23 00:24 CR Exam(s): CTA CHEST IV Amt: 118 cc opti 320 EXAM: CT Angiography Chest With Intravenous Contrast CLINICAL HISTORY: Reason for exam: PE and right chest/ back pain. TECHNIQUE: Axial computed tomographic angiography images of the chest with intravenous contrast. CTDI is 15.95 mGy and DLP is 463.08 mGy-cm. Automated exposure control was utilized for the study. A dose lowering technique was utilized adhering to the principles of ALARA. MIP reconstructed images were created and reviewed. COMPARISON: 02/16/2020. FINDINGS: Pulmonary arteries: See below. Aorta: No acute findings. No thoracic aortic aneurysm. Lungs: Minimal bullous changes involving the right upper lung. Multilevel degenerative disease of the spine. Small partial filling defect within a mid proximal segmental branch of the right anterior middle lobe pulmonary artery consistent with partially occlusive thrombus seen on axial images 124 through 126, series 4. Small partially occlusive thrombus within the mid distal segmental branch of the right upper lobe pulmonary artery, axial image 145 and 146, series 4. Bilateral lower lobe atelectasis with lingular bulla measuring 2.5 cm. Remainder of the lung ramey otherwise clear. No mass. Pleural space: Unremarkable. No pleural effusion or pneumothorax. Heart: Borderline cardiomegaly. The RV/LV ratio is 0.9 with no evidence of right-sided cardiac strain. No significant pericardial effusion. Mediastinum: Mild hiatal hernia. Bones/joints: Diffuse osteopenia with multilevel degenerative disease of the spine. No acute fracture. No dislocation. Soft tissues: Unremarkable. Lymph nodes: Unremarkable. No enlarged lymph nodes. Liver: Multiple low-attenuation structures within the liver, largest seen in the right liver lobe measuring 1.7 x 1.2 cm most compatible with liver cysts. Remainder of the liver unremarkable. IMPRESSION: 1. Small segmental and subsegmental right upper lobe and right middle lobe pulmonary emboli with no evidence of right-sided cardiac strain. 2. Bilateral lower lobe atelectasis, otherwise no acute pulmonary disease. Communications: Call Doctor Other Electronically signed by: Diana Aviles MD 07/22/23 01:46 AM Discharge Plan Visit Data Chief Complaint: Shoulder Pain Stated Complaint: RT SHOULDER PAIN, RT FLANK PAIN, RT ARM PAIN ED Provider: Natasha Abdalla Discharge Problem: Pulmonary emboli, Acute right-sided back pain Patient Disposition: Admitted As Inpatient Condition: Good Discharge Instructions Interventions: ED Discharge Assessment Last Done: 07/22/23 08:03 Discharge Problem: Pulmonary emboli Qualifiers: Pulmonary embolism type: unspecified Chronicity: acute Acute cor pulmonale presence: without acute cor pulmonale Qualified Code(s): I26.99 - Other pulmonary embolism without acute cor pulmonale Acute right-sided back pain Qualifiers: Back pain location: thoracic back pain Qualified Code(s): M54.6 - Pain in thoracic spine
--- NOTE | 2023-07-22 07:38 | XRay Report ---
RIGHT SHOULDER 3 VIEWS HISTORY: Shoulder trauma, no prior imaging COMPARISON: None. FINDINGS: There is no fracture or dislocation. Soft tissues are unremarkable. No radiopaque foreign b odies. Mild degenerative changes. The right clavicle is intact. Punctate ossific density adjacent to the glenoid is likely due to long-standing degenerative change. IMPRESSION: No fracture or dislocation within the right shoulder. ACT 112: Negative or not required by law. Electronically signed by: Manjit Espinosa M.D. 07/22/2023 7:35 AM
[2023-07-22] MEDS ORDERED: MAGNESIUM HYDROXIDE SUSP 30 ML UDC PO PRN (08:03)
[2023-07-22] MEDS ORDERED: hydrALAZINE HCL 20 MG/ML VIAL IV PRN (08:43)
[2023-07-22] MEDS ORDERED: LIDOCAINE 5% 1 PATCH TD SCH (09:00)
[2023-07-22] MEDS: KETOROLAC TROMETHAMINE 15 MG/ML VIAL IV PRN ×2 (09:51→17:05)
[2023-07-22 10:40] VITALS: TEMP 97.5
[2023-07-22 12:49] LABS: ANTI-Xa, UFH(UnfractionatedHep 0.85 IU/ml (0.3-0.7)
--- NOTE | 2023-07-22 15:52 | Ultrasound Report ---
US venous doppler LE BI CLINICAL HISTORY: PE, assess for DVT TECHNIQUE: Bilateral lower extremity real-time compression venous ultrasound with Color Doppler imagi ng. Utilizing real-time ultrasonic imaging multiple real time high-resolution ultrasonic images with compression and noncompression maneuvers of the deep venous system in addition to color doppler imagi ng were performed from the common femoral vein through the proximal calf veins. COMPARISON: None available at the time of this dictation. FINDINGS/IMPRESSION: Currently there is normal compressibility of the deep venous system from the common femoral vein thro ugh the proximal calf veins. Right popliteal cyst measures 4.2 x 0.9 x 1.8 cm. ACT 112: Negative or not required by law. Electronically signed by: Tomy Savage M.D. 07/22/2023 3:50 PM
[2023-07-22 16:29] VITALS: BP 159/92; PULSE 78; RESP 16; O2SAT 94
--- NOTE | 2023-07-22 16:47 | Discharge Summary ---
Discharge Summary Date of Service July 22, 2023 Notes For Next Care Provider Medication Changes From Visit Added Eliquis 10 Mg p.o. twice daily x 7 days, then 5 Mg p.o. twice daily for total of 3 months Ibuprofen 600 Mg p.o. every 6 hours as needed pain-use sparingly Hold Bruning's wort Admission HPI Per Admitting Provider Aurora Miramontes is an 88yo female with remote history of breast cancer (1990) presenting with right shoulder pain. Patient reports having Covid-19 infection July 07. This is her 4th time with Covid and she frequent has associated pain and weakness. She developed mouth ulcers and pain in her right back and scapula. Her mouth ulcers resolved but the pain in her right shoulder persisted and has been worsening over the last several days. Patient is very uncomfortable. Reports the pain is stabbing in nature and severe. Does not seem to be pleuritic or positional in nature. No chest pain, shortness of breath, nausea, vomiting or diarrhea. She does report poor appetite of late as well as some chronic constipation. No trauma or straining of the right shoulder area. No rash. No pain or swelling of legs No additional complaints at this time. In the ER she is afebrile, hypertensive at 183/113 otherwise HD stable. No respiratory distress. Adequate oxygenation on room air. ER Course: Toradol NSS Heparin gtt - ordered, not yet initiated Principal Dx & Hospital Course #1 = Principal Diagnosis (1) Pulmonary emboli: 88yo female presenting with ongoing right shoulder pain. Patient is quite uncomfortable, pain stabbing 10/10 in severity. Found to have small segmental and subsegmental RUL and RML pulmonary emboli as well as bilateral lower lobe atelectasis. Remainder of CT image largely unremarkable except for some bullous disease which is chronic Patient is hemodynamically stable, adequate oxygenation on room air. Patient does have a high risk PESI score (118 points) due to age and history of cancer. Normal shock index. PE most likely provoked in the setting of recent Covid-19 infection. Patient also endorses some decreased mobility lately due to orthopedic discomfort. Troponin is negative and no evidence of right heart strain on CT. Not hypoxic or tachycardic Of note, patient prefers to take a more holistic and spiritual approach to her health care. She does not take a lot of prescribed or over the counter medications but rather opts for supplements and herbal remedies. She does not spend a lot of time in the healthcare setting and is understandably anxious given her current situation. -Heparin gtt was given initially and then transitioned to Eliquis 10 Mg p.o. twice daily x 7 days, followed by 5 Mg p.o. twice daily times minimum 3 months -Advised not taking [place] Wort as this is contraindicated with Eliquis -In accordance with patient's wishes would ideally opt for shortest treatment duration (3 months of anticoagulation for provoked VTE) if possible -Doppler of the bilateral lower extremities negative for DVT but does show a popliteal cyst on the right -PE most likely provoked in the setting of COVID-19 infection recently as well as sedentary lifestyle. She is not up-to-date on cancer screenings and declines to do so. -She received several doses of IV Toradol here which helped with her pain. She can take ibuprofen sparingly for pleuritic pain over the next week but advised not to take ibuprofen on a long-term basis in conjunction with Eliquis -Given bleeding precautions and return for any trauma to the head (2) Right shoulder pain: Likely secondary to pleuritic pain from PE. Pain is actually more in the right side of the chest and in the right axilla and her PEs are on the right side No evidence of pneumonia, no fevers. Right shoulder x-ray and CT of the chest otherwise negative except for PE Improving with NSAIDs as above (3) Constipation: Patient reports ongoing constipation. She takes a stool softener at home -Milk of magnesium as needed Plan Disposition-stable for discharge to home. Discussed her care at length with patient and her at the bedside for over 45 minutes. Called her daughter and left a voicemail at daughter's request Discharge Exam Constitutional WD/WN, vitals as above Eyes + anicteric sclerae ENMT external ear and nose normal, oropharynx normal Respiratory normal respiratory effort, lungs clear to auscultation Cardiovascular RRR, no murmur, no edema Extremities: no calf tenderness and no edema Negative Homans' sign bilaterally Gastrointestinal (Abdomen) normal bowel sounds, soft, nontender, no hepatosplenomegaly Musculoskeletal no cyanosis or clubbing, extremities motor strength 5/5 Skin no rashes, warm and dry Neurologic PERRL, EOMI, accommodation nl, no face palsy, no dysarthria Psychiatric Orientation: alert, oriented x 3 and cooperative Affect: + anxious affect Updated Medication List Medication Instructions Recorded Confirmed Type Left Breast Prosthesis #1 ea 08/22/22 07/22/23 Rx Mastectomy Bra #4 ea 08/22/22 07/22/23 Rx triamcinolone acetonide 0.1 % 1 applic topical TID PRN external 02/03/23 07/22/23 Rx topical ointment irritation #30 grams estradiol 0.01% (0.1 mg/gram) 1 g vaginal .COMPLEX #42.5 grams 03/05/23 07/22/23 Rx vaginal cream nystatin 100,000 unit/gram topical 1 applic topical TID PRN Yeast #30 06/16/23 07/22/23 Rx ointment grams apixaban 5 mg tablet (Eliquis) 10 mg (2 x 5 mg) PO BID #74 tabs 07/22/23 Rx ibuprofen 200 mg tablet 600 mg (3 x 200 mg) PO Q6H PRN 07/22/23 Rx pain #20 tabs Hospital Stay Data Consultations 07/22/23 03:49 ED Decision to Admit Stat Diagnostic Imagining Performed 07/22/23 00:24 CT angio chest PE protocol Stat 07/22/23 14:41 US venous doppler LE BI Stat Pending Results Patient Have Any Pending Studies at Discharge: No Discharge Instructions Given to Patient (Per Discharging Provider) You were admitted with a blood clot in your lung which is causing the pain in the right side of your chest. You can take ibuprofen sparingly as we discussed for pain but should not remain on it long-term. You were started on a blood thinner called Eliquis which is to be taken twice a day for the next 3 months. You will take 2 of the 5 mg tablets twice a day for the next 6-1/2 days, followed by one of the 5 mg tablets twice a day for 3 months. If you have any difficulty with bleeding as we discussed, please come to the hospital for evaluation. If it is a minor cut or wound or light bleeding, please hold pressure to the area. If you ever fall and hit your head, you should also come to be evaluated at the hospital. If you experience worsening pain in the chest or increasing shortness of breath, please return to the hospital as well. Total Time Total Time Spent Total Time Spent (In Minutes): 50 minutes Coding Level of Care Code 31524 INP/OBS DISCH >30 MIN Diagnoses Pulmonary emboli I26.99 Right shoulder pain M25.511 Constipation K59.00
[2023-07-22] MEDS ORDERED: APIXABAN 5 MG TABLET PO SCH (17:00)
--- NOTE | 2023-07-23 13:02 | Electrocardiogram Report ---
Test Reason : Blood Pressure : / mmHG Vent. Rate : 090 BPM Atrial Rate : 090 BPM P-R Int : 216 ms QRS Dur : 082 ms QT Int : 350 ms P-R-T Axes : 079 031 081 degrees QTc Int : 428 ms Sinus rhythm with 1st degree A-V block Otherwise normal ECG When compared with ECG of 08-FEB-2020 18:50, NE interval has increased ST no longer elevated in Lateral leads Nonspecific T wave abnormality no longer evident in Inferior leads T wave inversion no longer evident in Anterior leads Confirmed by Trell Gonzales ([id number]) on 07/23/2023 1:02:13 PM Referred By: REFERRED SELF Confirmed By:Trell Gonzales
== END 2023-07-22 18:23 | disposition home or self-care (01) ==
LOC: SUATTDRO → ED 22:31 → EDINP 22:31 → 3E 07-22 08:03
DX: I26.99 Other pulmonary embolism without acute cor pulmonale; Z88.1 Allergy status to other antibiotic agents; K59.00 Constipation, unspecified; Z86.16 Personal history of COVID-19; Z88.2 Allergy status to sulfonamides; M25.511 Pain in right shoulder; Z88.0 Allergy status to penicillin